=== PATIENT | male | born 1960 | race Caucasian/White ===

== ENCOUNTER 2018-06-04 06:28 | Day surgery (SDC) | payer BC ==
[~2018-06-04 06:28] MED LIST: GABAPENTIN100 MG PO; WELLBUTRIN150 M1 PO
[2018-06-04] MEDS ORDERED: CHLOR-PHENIR4 MG PO (06:39)
[2018-06-04 09:12] VITALS: BP 113/83
== END 2018-06-04 08:54 | disposition home or self-care (01) | DRG 951 ==
LOC: ENDO 06:28
PROVIDERS: ATTEND Surgery
PROC: 0DJD8ZZ Inspection of Lower Intestinal Tract, Via Natural or Artificial Opening Endoscopic (ICD-10-PCS; principal; 2018-06-04)
DX: Z12.11 Encounter for screening for malignant neoplasm of colon (principal); I10 Essential (primary) hypertension; E78.5 Hyperlipidemia, unspecified; F41.1 Generalized anxiety disorder